=== PATIENT | female | born 1985 | race Caucasian/White ===

== ENCOUNTER 2020-11-08 18:47 | Inpatient (IN) | payer OTHER ==
[2020-11-08] MEDS ORDERED: Morphine 4 MG/ML VIAL ONE (19:33)
[2020-11-08] MEDS ORDERED: Ondansetron PF 4 MG/2 ML Vial ONE (19:33)
[2020-11-08 19:44] LABS: #Basophils 0.1 thou/uL (0.0-0.2); #Eosinphils 0.1 thou/uL (0.0-0.7); #Lymphocytes 1.6 thou/uL (1.20-3.40); #Monocytes 0.2 thou/uL (0.11-0.59); #Neutrophils 3.3 thou/uL (1.40-6.50); %Basophils 1.6 % (0.0-1.0); %Eosinophils 1.7 % (0.0-10.0); %Lymphocytes 30.6 % (21.0-51.0); %Monocytes 4.3 % (0.0-10.0); %Neutrophils 61.8 % (42.0-75.0); Hemoglobin 11.2 g/dL (12.0-16.0); Mean Corpuscular HGB CONC 33.7 g/dL (32.0-36.0); Mean Corpuscular Hemoglobin 31.2 pg (27.0-31.0); Mean Corpuscular Volume 92.6 fL (78.0-98.0); Mean Platelet Volume 7.3 fL (7.4-10.4); Platelet Count 288 thou/uL (130-400); RBC Distribution Width 11.8 % (11.5-14.5); White Blood Cell (WBC) Count 5.3 thou/uL (4.8-10.8)
[2020-11-08 20:17] LABS: ALT (SGPT) 18 U/L (8-55); AST (SGOT) 22 U/L (5-34); Albumin 3.7 g/dL (3.5-5.0); Alkaline Phosphatase 57 U/L (40-110); Anion Gap 13 mmol/L (10-20); BUN (Urea Nitrogen) 11 mg/dL (7.0-18.7); Bilirubin, Total 0.4 mg/dL (0.2-1.2); Calc. Creatinine Clearance 0 mL/min (70-130); Calcium 8.9 mg/dL (7.8-10.44); Carbon Dioxide 23 mmol/L (22-29); Chloride 108 mmol/L (98-107); Globulin 2.1 g/dL (2.4-3.5); Glucose 102 mg/dL (70-105); Lipase 356 U/L (8-78); Protein, Total 5.8 g/dL (6.0-8.3); Sodium 140 mmol/L (136-145)
[2020-11-08 20:57] LABS: Bacteria/HPF None Seen HPF (None Seen); Bilirubin Negative (Negative); Blood, Urine Trace (Negative); Clarity Clear (Clear); Glucose, Urine (Dipstick) Normal (Negative); Ketone, Urine Negative (Negative); Leukocyte Negative Leu/uL (Negative); Nitrite Negative (Negative); Protein, Urine (Dipstick) Negative (Neg-Trace); RBC/HPF 0-3 HPF (0-3); Specific Gravity, Urine 1.016 (1.002-1.036); Squamous Epithelial 0-3 HPF (0-3); Urobilinogen Normal mg/dL (Less than 2); WBC/HPF 0-3 HPF (0-3); pH, Urine 5.5 (5.0-9.0)
[2020-11-08] MEDS ORDERED: diphenhydrAMINE 50 MG/ML VIAL ONE (22:11)
[2020-11-08] MEDS ORDERED: Lisinopril 10 MG TAB PO SCH (22:15)
[2020-11-08] MEDS ORDERED: Lisinopril 10 MG TAB ONE (23:32)
[2020-11-08 23:36] VITALS: BP 139/69
[2020-11-09] MEDS ORDERED: Ondansetron PF 4 MG/2 ML Vial ONE ×3 (00:50→09:32)
[2020-11-09] MEDS ORDERED: Acetaminophen 325 MG TAB PO PRN (01:24)
[2020-11-09] MEDS ORDERED: Lactated Ringer's 1,000 ML IV SCH (01:24)
[2020-11-09] MEDS ORDERED: Ondansetron ODT 4 MG TAB PO PRN (01:24)
[2020-11-09] MEDS ORDERED: Morphine 2 MG/ML VIAL SLOW IVP PRN (01:24)
[2020-11-09] MEDS ORDERED: Morphine 4 MG/ML VIAL ONE ×2 (01:38→05:31)
[2020-11-09] MEDS: Morphine 4 MG/ML VIAL SLOW IVP PRN ×2 (01:42→05:35)
[2020-11-09] MEDS: Ondansetron PF 4 MG/2 ML Vial IVP PRN ×2 (03:30→10:03)
[2020-11-09 04:01] VITALS: BMI 22.1
[2020-11-09 05:05] LABS: #Eosinphils 0.1 thou/uL (0.0-0.7); #Lymphocytes 1.8 thou/uL (1.20-3.40); #Monocytes 0.4 thou/uL (0.11-0.59); #Neutrophils 3.2 thou/uL (1.40-6.50); %Basophils 0.8 % (0.0-1.0); %Eosinophils 1.1 % (0.0-10.0); %Lymphocytes 32.7 % (21.0-51.0); %Monocytes 6.8 % (0.0-10.0); %Neutrophils 58.6 % (42.0-75.0); Hemoglobin 10.1 g/dL (12.0-16.0); Mean Corpuscular HGB CONC 34.4 g/dL (32.0-36.0); Mean Corpuscular Hemoglobin 31.7 pg (27.0-31.0); Mean Corpuscular Volume 92.3 fL (78.0-98.0); Mean Platelet Volume 7.2 fL (7.4-10.4); Platelet Count 218 thou/uL (130-400); RBC Distribution Width 11.7 % (11.5-14.5); White Blood Cell (WBC) Count 5.5 thou/uL (4.8-10.8)
[2020-11-09 05:32] LABS: ALT (SGPT) 19 U/L (8-55); AST (SGOT) 23 U/L (5-34); Albumin 3.3 g/dL (3.5-5.0); Alkaline Phosphatase 50 U/L (40-110); Anion Gap 11 mmol/L (10-20); BUN (Urea Nitrogen) 9 mg/dL (7.0-18.7); Bilirubin, Total 0.4 mg/dL (0.2-1.2); Calc. Creatinine Clearance 70 mL/min (70-130); Calcium 8.1 mg/dL (7.8-10.44); Carbon Dioxide 23 mmol/L (22-29); Cardiac Risk 4.5 (Less than 4.5); Chloride 111 mmol/L (98-107); Cholesterol 165 mg/dl (< 200 Desired); Globulin 1.9 g/dL (2.4-3.5); Glucose 80 mg/dL (70-105); HDL Cholesterol 37 mg/dL (>60 Neg Risk); LDL Cholesterol, Calculated 105 mg/dL; Protein, Total 5.2 g/dL (6.0-8.3); Sodium 141 mmol/L (136-145); Triglycerides 114 mg/dL (Less than 150)
[2020-11-09 05:36] LABS: SARS-CoV-2 PCR by NAA Not Detected (NotDetected)
[2020-11-09] MEDS ORDERED: Tacrolimus 0.5 MG CAP PO SCH (09:00)
[2020-11-09] MEDS ORDERED: Ivabradine 5 MG TAB PO SCH (09:00)
[2020-11-09] MEDS ORDERED: Enoxaparin Sodium 40 MG/0.4 ML SYRINGE SC SCH (09:00)
[2020-11-09] MEDS ORDERED: Famotidine/PF 20 mg/2ml Vial SLOW IVP SCH (09:00)
[2020-11-09] MEDS ORDERED: predniSONE 5 MG TAB PO SCH (09:00)
[2020-11-09] MEDS ORDERED: Mycophenolate ER 180 MG TAB PO SCH (09:00)
[2020-11-09] MEDS ORDERED: Enoxaparin Sodium 40 MG/0.4 ML SYRINGE ONE (09:17)
[2020-11-09] MEDS ORDERED: Famotidine/PF 20 mg/2ml Vial ONE (09:17)
[2020-11-09] MEDS ORDERED: Morphine 2 MG/ML VIAL ONE (09:19)
== END 2020-11-09 10:43 | disposition short-term general hospital (02) | DRG 439 ==
LOC: ERS 18:47 → ERHOLD 21:09
PROVIDERS: ADMIT Emergency Medicine; ATTEND Emergency Medicine
DX: K85.90 Acute pancreatitis without necrosis or infection, unspecified (principal); Z94.0 Kidney transplant status; M79.7 Fibromyalgia; M85.80 Other specified disorders of bone density and structure, unspecified site; I10 Essential (primary) hypertension; G89.29 Other chronic pain; M47.9 Spondylosis, unspecified; R25.1 Tremor, unspecified; K58.9 Irritable bowel syndrome, unspecified; R51.9 Headache, unspecified; Z20.822 Contact with and (suspected) exposure to COVID-19; D64.9 Anemia, unspecified; I49.8 Other specified cardiac arrhythmias; Z90.710 Acquired absence of both cervix and uterus; Z90.49 Acquired absence of other specified parts of digestive tract; Z98.51 Tubal ligation status; Z90.721 Acquired absence of ovaries, unilateral; Z88.5 Allergy status to narcotic agent; Z88.1 Allergy status to other antibiotic agents; Z88.8 Allergy status to other drugs, medicaments and biological substances
CPT/HCPCS: 36415; 74176; 76705; 80053; 80061; 81003; 81015; 82150; 83690; 85025; 87635; 96374; 96375; 96376; J1200; J1650; J2270; J2405; J7512; J7518; S0028; U0003; U0005

== ENCOUNTER 2020-11-16 10:07 | Outpatient (CLI) | payer OTHER | END 2020-11-16 10:08 | disposition home or self-care (01) | LOC: BICRAD 10:07 | PROVIDERS: ATTEND Family Medicine | DX: M25.571 Pain in right ankle and joints of right foot (principal) ==